=== PATIENT | female | born 1970 | race Caucasian/White ===

== ENCOUNTER 2018-10-26 09:46 | Emergency (ER) | payer OTHER ==
[2018-10-26 11:32] VITALS: BP 160/96
--- NOTE | 2018-10-26 11:35 | UC ---
Skin Complaint HPI - HPI Summary HPI Summary: R ankle pain and swelling after getting a 'bite'. Reports it was Itchy and lund a bit but noticed increased swelling and tightness. has not used any benadryl. she denies being allergic to any insects. - History of Current Complaint Chief Complaint: UCSkin Time Seen by Provider: 10/26/18 11:35 Stated Complaint: INSECT BITE ON NECK Hx Obtained From: Patient Hx Last Menstrual Period: 10/07/18 ?: No Pain Intensity: 0 Location: Discrete Aggravating Factor(s): Nothing Alleviating Factor(s): Nothing Associated Signs & Symptoms: Negative: Throat Tightening - Allergy/Home Medications Allergies/Adverse Reactions: Allergies Allergy/AdvReac Type Severity Reaction Status Date / Time adhesive tape Allergy Rash Verified 10/26/18 11:32 PMH/Surg Hx/FS Hx/Imm Hx Previously Healthy: Yes Cardiovascular History: Hypertension - Surgical History Surgical History: Yes Surgery Procedure, Year, and Place: cholecystectomy - Family History Known Family History: Positive: Non-Contributory - Social History Alcohol Use: Rare Substance Use Type: None Smoking Status (MU): Never Smoked Tobacco Have You Smoked in the Last Year: No Review of Systems All Other Systems Reviewed And Are Negative: Yes Constitutional: Negative: Fever Skin: Positive: Rash Respiratory: Negative: Shortness Of Breath Musculoskeletal: Positive: Arthralgia, Edema. Negative: Myalgia Neurological: Negative: Paresthesia, Numbness Physical Exam Triage Information Reviewed: Yes Appearance: Well-Appearing Vital Signs: Initial Vital Signs Temp 98.6 F 10/26/18 11:29 Pulse 48 10/26/18 11:29 Resp 16 10/26/18 11:29 BP 160/96 10/26/18 11:29 Pulse Ox 99 10/26/18 11:29 Vital Signs Reviewed: Yes Respiratory Exam: Normal Cardiovascular Exam: Normal Skin: Positive: Other - R ankle swelling w/ mild erythema w/ minimal tenderness and excoriations. Course/Dx - Course Course Of Treatment: R ankle skin swelling/redness/mild pain after getting bit by insect but unknown type. I recommend ranitidine and benadryl daily and given degree of redness will tx for developing cellulitis. No resp involvement. she denies being allergic to any insects. BP elevated and she will disc w/ pcp. - Differential Diagnoses - Skin Complaint Differential Diagnoses: Drug Rash, Local Allergic Reaction, Other - Diagnoses Provider Diagnosis: Insect bite Discharge ED - Sign-Out/Discharge Documenting (check all that apply): Patient Departure All imaging exams completed and their final reports reviewed: No Studies - Discharge Plan Condition: Good Disposition: HOME Prescriptions: Cephalexin CAP* [Keflex CAP*] 500 mg PO QID 5 Days #20 cap Patient Education Materials: Insect Bite or Sting (ED) Referrals: Cecile Rogers ECONOMIC SPECIALIST [Primary Care Provider] - Additional Instructions: It's unclear what bit you and I do not think you need antibiotics but you have decided to have them sent in the low chance this gets worse. If this gets larger or forms into an abscess please return. - Billing Disposition and Condition Condition: GOOD Disposition: Home - Attestation Statements Provider Attestation: I was available for consult. This patient was seen by the B[facility]. The patient was not presented to , seen by or examined by ak -Luis Crocker MD Addendum entered and electronically signed by Maureen Baker PA 10/28/18 09:06 : Addendum Addendum: ERROR IN CHART: hpi:Saturday afternoon pt noticed a pimple like spot on the L side of her neck/ shoulder. This morning pt woke up with a stiff neck, and the area is now more red, raised, and tender to the touch. Pt concerned she may have been bit by something. ROS: +RED area on side of neck. denies fever, joint swelling rash, abraham. exam:constitutional:unremarkable respiratory:unremarkable cardiology: unremarkable skin:L lateral neck has 2mm mildly red area, nontender, no induration. a/p:Unclear what caused this and area is minimally inflammed. Not cellulitic but pt requesting antibx. we disc that this would not be appropriate tx for this but she prefers to take the antibx. we disc risks of medication, side effects.
== END 2018-10-26 11:55 | disposition home or self-care (01) ==
LOC: UCEAST 09:46
DX: S10.96XA Insect bite of unspecified part of neck, initial encounter (principal); W57.XXXA Bitten or stung by nonvenomous insect and other nonvenomous arthropods, initial encounter; Y92.9 Unspecified place or not applicable; I10 Essential (primary) hypertension
CPT/HCPCS: 99212; G0463

== ENCOUNTER 2019-03-15 07:33 | Emergency (ER) | payer OTHER ==
[2019-03-15 07:42] VITALS: BP 182/101
--- NOTE | 2019-03-15 08:12 | UC ---
Respiratory Complaint HPI - HPI Summary HPI Summary: 48-year-old woman comes in with chief complaint of one week of upper respiratory tract infection symptoms. She has rhinorrhea sinus pressure postnasal drip cough chest congestion. Initially was more in the sinuses now she feels like it's more in the chest. This morning when she was coughing she coughed up a large amount of yellow sputum. She does feel some wheezing and shortness of breath. She reports a fever last night. She has pain in her chest when she coughs. She does not have myalgias otherwise. - History of Current Complaint Chief Complaint: UCGeneralIllness Stated Complaint: COUGH Time Seen by Provider: 03/15/19 07:58 Hx Last Menstrual Period: 10/07/18 Pain Intensity: 6 - Allergies/Home Medications Allergies/Adverse Reactions: Allergies Allergy/AdvReac Type Severity Reaction Status Date / Time adhesive tape Allergy Rash Verified 03/15/19 07:42 PMH/Surg Hx/FS Hx/Imm Hx Previously Healthy: Yes Cardiovascular History: Hypertension - Surgical History Surgical History: Yes Surgery Procedure, Year, and Place: cholecystectomy - Family History Known Family History: Positive: Non-Contributory - Social History Alcohol Use: Rare Substance Use Type: None Smoking Status (MU): Never Smoked Tobacco Have You Smoked in the Last Year: No Review of Systems All Other Systems Reviewed And Are Negative: Yes Constitutional: Positive: Fever, Other - SEE HPI Skin: Positive: Negative Eyes: Positive: Negative ENT: Positive: Sore Throat, Nasal Discharge, Sinus Congestion, Sinus Pain/ Tenderness Respiratory: Positive: Shortness Of Breath, Cough, Other - SEE HPI Cardiovascular: Positive: Chest Pain - SEE HPI Gastrointestinal: Positive: Negative Motor: Positive: Negative Neurovascular: Positive: Negative Musculoskeletal: Positive: Negative Neurological: Positive: Negative Psychological: Positive: Negative Is Patient Immunocompromised?: No Physical Exam Triage Information Reviewed: Yes Appearance: No Pain Distress, Well-Nourished, Ill-Appearing - MILD Vital Signs: Initial Vital Signs Temp 97.8 F 03/15/19 07:38 Pulse 72 03/15/19 07:38 Resp 18 03/15/19 07:38 BP 182/101 03/15/19 07:38 Pulse Ox 97 03/15/19 07:38 Vital Signs Reviewed: Yes Eye Exam: Normal Eyes: Positive: Conjunctiva Clear ENT: Positive: Pharyngeal erythema, Nasal congestion, Nasal drainage, TMs normal Neck: Positive: Supple Respiratory: Positive: Lungs clear, Normal breath sounds, No respiratory distress Cardiovascular: Positive: RRR Musculoskeletal: Positive: Strength Intact, ROM Intact Neurological: Positive: Alert, Muscle Tone Normal Psychological: Positive: Age Appropriate Behavior Skin Exam: Normal Respiratory Course/Dx - Course Course Of Treatment: DISCUSSED VIRAL VERSES BACTERIAL INFECTIONS AND THE ROLE OF ANTIBIOTICS. THE PATIENT PREFERS TO BE ON ANTIBIOTICS AT THIS TIME. We discussed the patient's elevated blood pressure here in clinic. She is on blood pressure medicines. She reports that usually her blood pressure is higher in the doctor's office. Patient will get her blood pressure rechecked with her primary care physician. - Differential Dx/Diagnosis Provider Diagnosis: Bronchitis with bronchospasm, Hypertension Discharge ED - Sign-Out/Discharge Documenting (check all that apply): Patient Departure All imaging exams completed and their final reports reviewed: No Studies - Discharge Plan Condition: Stable Disposition: HOME Prescriptions: Albuterol HFA INHALER* [Ventolin HFA Inhaler*] 2 puff INH Q4H PRN #1 mdi PRN Reason: Wheezing DOXYcycline CAP(*) [DOXYcycline 100MG CAP(*)] 100 mg PO BID #20 cap Patient Education Materials: Acute Bronchitis (ED), Hypertension (ED), Bronchospasm (ED) Referrals: Cecile Rogers NP [Primary Care Provider] - Additional Instructions: FOLLOW UP WITH YOUR DOCTOR FOR YOUR BRONCHITIS AND HYPERTENSION. GET REEVALUATED SOONER IF NOT IMPROVED OR WORSE OR ANY QUESTIONS OR CONCERNS. - Billing Disposition and Condition Condition: STABLE Disposition: Home
== END 2019-03-15 08:20 | disposition home or self-care (01) ==
LOC: UCEAST 07:33
DX: J98.01 Acute bronchospasm (principal); J40 Bronchitis, not specified as acute or chronic; I10 Essential (primary) hypertension; R09.81 Nasal congestion; R09.89 Other specified symptoms and signs involving the circulatory and respiratory systems; Z91.09 Other allergy status, other than to drugs and biological substances
CPT/HCPCS: 99212; G0463